=== PATIENT | female | born 1995 | race Caucasian/White ===

== ENCOUNTER 2021-10-31 21:15 | Emergency (ER) | payer MEDICAID ==
[~2021-10-31] VITALS: Ht 165.1 cm; Wt 61.3 kg
[2021-10-31 22:10] VITALS: BP 129/83
[2021-10-31] MEDS ORDERED: AMOXICILLIN/K CLAV 875/125MG TABLET. PO ONE (23:00)
[2021-10-31] MEDS ORDERED: AMOX1TAB61 PO (23:13)
--- NOTE | 2021-10-31 23:14 | PHYS DOC ---
Past Medical History Additional Past Medical Histor: Deaf Past Surgical History: No Surgical History Smoking Status: Never Smoker Alcohol Use: None General Adult EDM: Chief Complaint: ANIMAL BITE HPI: HPI: Patient is a 26 year old female who presents with swelling in her right arm after a cat bite. Cat bit her 2 nights ago. Was a stray cat that she was attempting to feed. States that they have seen the cat around the house for quite a while. No idea about the cats vaccination status. Has had increasing pain and redness around her right arm. She was scratched on her left wrist. No fevers/chills or lymph node swelling. She is deaf, and history was obtained using texting on a cell phone. Review of Systems: Review of Systems: Constitutional: Denies fever or chills. [] Eyes: Denies change in visual acuity. [] HENT: Denies nasal congestion or sore throat. [] Respiratory: Denies cough or shortness of breath. [] Cardiovascular: Denies chest pain or edema. [] GI: Denies abdominal pain, nausea, vomiting, bloody stools or diarrhea. [] : Denies dysuria. [] Musculoskeletal: Denies back pain or joint pain. [] Integument: Reports rash and pain in her right upper extremity. Neurologic: Denies headache, focal weakness or sensory changes. [] Endocrine: Denies polyuria or polydipsia. [] Lymphatic: Denies swollen glands. [] Psychiatric: Denies depression or anxiety. [] Heart Score: C/O Chest Pain: No Current Medications: Current Medications Medications (Trade) Dose Ordered Sig/Seng Start Time Stop Time Status Last Admin Dose Admin Amoxicillin/ Clavulanate Potassium (Augmentin 875/ 125mg) 1 tab 1X ONCE 10/31/21 23:00 10/31/21 23:01 DC 10/31/21 23:02 1 TAB Rabies Immune Globulin (HyperRAB 300 UNIT/ML 5ML VIAL) 4 ml ONCE ONCE 10/31/21 23:30 10/31/21 23:31 10/31/21 23:05 4 ML Rabies Vaccine Human Diploid Cell (Imovax Rabies 2.5 Unit / ml) 1 ml ONCE ONCE 10/31/21 23:30 10/31/21 23:31 10/31/21 23:03 1 ML Allergies: Allergies: Allergies Coded Allergies Type Severity Reaction Last Updated Verified No Known Drug Allergies 10/31/21 No Physical Exam: PE: Constitutional: Well developed, well nourished, no acute distress, non-toxic appearance. [] HENT: Normocephalic, atraumatic,deaf. Eyes: conjunctiva normal, no discharge. [] Neck: Normal range of motion, no tenderness, supple, no stridor. [] Cardiovascular:Heart rate regular rhythm, no murmur [] Lungs & Thorax: Bilateral breath sounds clear to auscultation [] Abdomen: Bowel sounds normal, soft, no tenderness, no masses, no pulsatile masses. [] Skin: R arm with a 4x6 cm area of redness, flat with distinct margins. Tender to touch. No purulent drainage or fluctuance. No distinct puncture wounds seen. Left wrist with two small superficial scratches without erythema or tenderness. Extremities: No tenderness, no cyanosis, no clubbing, ROM intact, no edema. [] Neurologic: Alert and oriented X 3 Psychologic: Affect normal, judgement normal, mood normal. [] Current Patient Data: Vital Signs: Vital Signs Date Time Temp Pulse Resp B/P (MAP) Pulse Ox O2 Delivery O2 Flow Rate FiO2 10/31/21 22:10 98.3 83 20 129/83 (98) 98 Room Air 98.3 EKG: EKG: [] Radiology/Procedures: Radiology/Procedures: [] Course & Med Decision Making: Course & Med Decision Making Pertinent Labs and Imaging studies reviewed. (See chart for details) Patient is 26-year-old female presents following a bite from a stray cat. Right posterior forearm with an area of erythema and tenderness concerning for cellulitis. Given Augmentin in the emergency department and a 7-day prescription for continued antibiotics. There is no way to identify the vaccination status for the cat or to capture the animal, so rabies vaccine and immunoglobulin was given. 3 mL was infiltrated around the edges of the of the area of erythema and 1 mL installments. These were placed in areas where there was not evidence of active infection. The remaining 1 ml was placed in the right deltoid. The rabies vaccine was given in the L deltoid. She was instructed to return at 3, 7, and 14 days for additional rabies prophylaxis. Due to her deafness this was given as written instruction and she verified u nderstanding of treatment plan. [id number] Rabia Disclaimer: Rabia Disclaimer: This electronic medical record was generated, in whole or in part, using a voice recognition dictation system. Departure Departure Impression: Primary Impression: Cat bite Additional Impressions: Cellulitis Rabies, need for prophylactic vaccination against Disposition: HOME / SELF CARE / HOMELESS Condition: STABLE Referrals: UNKNOWN PCP NAME (PCP) Additional Instructions: Because this was a stray cat we will need to treat you for a potential rabies exposure. We will give you a rabies vaccine and a shot that give you antibodies to fight off any rabies that the cat could have been carrying. We will give you your first shots here tonight. This will require you to come back to the emergency department 11/03, 11/07, and 11/14 for additional shots. This is VERY important. --- In addition to treating for potential rabies your arm does appear to have a skin infection. This will need to be treated with an antibiotic pill called Augmentin. You will have to take this twice a day for 1 week. Scripts Amoxicillin/Potassium Clav (AUGMENTIN 875-125 TABLET) 1 Each Tablet 1 TAB PO Q12HR for 7 Days, #14 TAB 0 Refills Prov: RYLEY ELENA MD 10/31/21 RYLEY ELENA MD Oct 31, 2021 23:13
[2021-10-31] MEDS ORDERED: RABIES VIRUS VACC PF 2.5 UNIT / 1 ML VIAL. VAX IM ONE (23:30)
[2021-10-31] MEDS ORDERED: RABIES IMMUNE GLOBULIN PF 300 UNIT/ML 5ML VIAL VAX IM ONE (23:30)
== END 2021-10-31 23:30 | disposition home or self-care (01) ==
LOC: ER 21:15
DX: S41.151A Open bite of right upper arm, initial encounter (principal); L03.113 Cellulitis of right upper limb; W55.01XA Bitten by cat, initial encounter; Y93.89 Activity, other specified; Y92.89 Other specified places as the place of occurrence of the external cause; Y99.8 Other external cause status
CPT/HCPCS: 90375; 90471; 90675; 96372; 99284-25

== ENCOUNTER 2021-11-03 12:56 | Emergency (ER) | payer MEDICAID ==
[~2021-11-03] VITALS: Ht 165.1 cm; Wt 61.0 kg
[~2021-11-03 12:56] MED LIST: AMOX1TAB61 PO
[2021-11-03 14:17] VITALS: BP 116/70
[2021-11-03] MEDS ORDERED: RABIES VIRUS VACC PF 2.5 UNIT / 1 ML VIAL. VAX IM ONE (15:00)
--- NOTE | 2021-11-03 15:01 | PHYS DOC ---
Past Medical History Additional Past Medical Histor: Deaf Past Surgical History: No Surgical History Smoking Status: Never Smoker Alcohol Use: None General Adult EDM: Chief Complaint: OTHER COMPLAINTS HPI: HPI: Patient is a 26-year-old female who presents to the emergency department for the second vaccination series for rabies. She was seen here 3 days ago for initial vaccination of rabies. Patient reports she is doing much better. Denies other physical complaints or physical concerns. Review of Systems: Review of Systems: 14 body systems of review of systems have been reviewed. See HPI for pertinent positives and negative responses, otherwise all other systems are negative, nonpertinent or noncontributory. Constitutional: Negative except as outlined in HPI above. Skin: Negative except as outlined in HPI above. Eyes: Negative except as outlined in HPI above. HENT: Negative except as outlined in HPI above. Respiratory: Negative except as outlined in HPI above. Cardiovascular: Negative except as outlined in HPI above. GI: Negative except as outlined in HPI above. : Negative except as outlined in HPI above. Musculoskeletal: Negative except as outlined in HPI above. Integument: Negative except as outlined in HPI above. Neurologic: Negative except as outlined in HPI above. Endocrine: Negative except as outlined in HPI above. Lymphatic: Negative except as outlined in HPI above. Psychiatric: Negative except as outlined in HPI above. Heart Score: C/O Chest Pain: No Risk Factors: Risk Factors: DM, Current or recent (<one month) smoker, HTN, HLP, family history of CAD, obesity. Risk Scores: Score 0 - 3: 2.5% MACE over next 6 weeks - Discharge Home Score 4 - 6: 20.3% MACE over next 6 weeks - Admit for Clinical Observation Score 7 - 10: 72.7% MACE over next 6 weeks - Early Invasive Strategies Current Medications: Current Medications Medications (Trade) Dose Ordered Sig/Seng Start Time Stop Time Status Last Admin Dose Admin Rabies Vaccine Human Diploid Cell (Imovax Rabies 2.5 Unit / ml) 1 ml ONCE ONCE 11/03/21 15:00 11/03/21 15:01 Allergies: Allergies: Allergies Coded Allergies Type Severity Reaction Last Updated Verified No Known Drug Allergies 10/31/21 No Physical Exam: PE: Constitutional: Well developed, well nourished, no acute distress, non-toxic appearance. 26-year-old female in no apparent distress. Patient is deaf, communicated through cell phone texting. HENT: Normocephalic, atraumatic. Eyes: Conjunctiva normal, no discharge. Neck: Normal range of motion, no stridor. Cardiovascular: No cyanosis appreciated, distal cap refill less than 2 seconds. Lungs & Thorax: Patient is in no respiratory distress, no audible adventitious lung sounds appreciated. Abdomen: Nontender, no abnormalities noted. Skin: Warm, dry, no erythema, no rash. Back: No tenderness, no deformities. Extremities: No tenderness, no cyanosis, no clubbing, ROM intact, no edema. Neurologic: Alert and oriented X 3, normal motor function, normal sensory function, no focal deficits noted. Psychologic: Affect normal, judgement normal, mood normal. Current Patient Data: Vital Signs: Vital Signs Date Time Temp Pulse Resp B/P (MAP) Pulse Ox O2 Delivery O2 Flow Rate FiO2 11/03/21 14:17 98.4 82 16 116/70 (85) 100 Room Air 98.4 EKG: EKG: [] Radiology/Procedures: Radiology/Procedures: [] Course & Med Decision Making: Course & Med Decision Making Pertinent Labs and Imaging studies reviewed. (See chart for details) 26-year-old female, vital signs reviewed, presents to the emergency department for second rabies vaccine immunization series. Physical examination is unremarkable, patient was originally seen for a cat bite to the right arm with a 4 x 6 cm area of redness with flat distinct margins and tender to touch, there was no longer erythema or redness appreciated of the right arm. Patient reports she is doing much better now. Discussed with patient will give day 3 immunization, discussed with patient to return for day 7 and 14 on 1223 and 1230 respectively, patient gave verbal understanding of and is amenable to ED discharge planning. Discussed with the patient all findings and diagnostic testing as well as the need to follow-up with their primary care provider for further evaluation and treatment or return to the ED if any new or worsening symptoms. Strict return precautions were also discussed at length, the patient voiced understanding and agreement with the discharge planning. The patient was nontoxic in appearance, in no apparent distress, and hemodynamically stable at the time of disposition. Dragon Disclaimer: Dragon Disclaimer: This electronic medical record was generated, in whole or in part, using a voice recognition dictation system. Departure Departure Impression: Primary Impression: Medication administered Additional Impression: Rabies, need for prophylactic vaccination against Disposition: 01 HOME / SELF CARE / HOMELESS Condition: GOOD Referrals: UNKNOWN PCP NAME (PCP) Patient Instructions: Rabies Vaccine suspension for injection Additional Instructions: You were seen here today for day 3 of rabies vaccine treatment. Please return on days 11/07 and 11/14 for additional rabies vaccine immunization injections. This is a must. Please continue to take your antibiotics as prescribed by the emergency department physician you seen 3 days ago. Thank you for visiting our Emergency Department. It was a pleasure taking care of you today in the emergency department and we appreciate you trusting us with your care. If any additional problems come up don't hesitate to return to visit us. Please follow up with your primary care provider so they can plan additional care if needed and know about the problem that you had. If symptoms worsen come back to the Emergency Department. Any concerning symptoms that start such as chest pain, shortness of air, weakness or numbness on one side of the body, running high fevers or any other concerning symptoms return to the ER. ABHILASH WSENSON APRN Nov 03, 2021 15:01
== END 2021-11-03 15:22 | disposition home or self-care (01) ==
LOC: ER 12:56
DX: Z29.14 Encounter for prophylactic rabies immune globulin (principal)
CPT/HCPCS: 90471; 90675; 99283-25